=== PATIENT | male | born 1970 | race Hispanic/Latino ===

== ENCOUNTER 2022-12-30 14:01 | Emergency (ER) | payer SELFPAY ==
--- NOTE | ~2022-12-30 | XR_ITS ---
EXAMINATION: XR abdomen/kub 1V INDICATION: Foreign body evaluation TECHNIQUE: Supine views of the abdomen were obtained on 2 radiographs. COMPARISON: None FINDINGS: No radiopaque foreign body is identified. The bowel gas pattern is normal. The visualized l libby bases are clear. There is mild osteoarthritis of the hips. IMPRESSION: 1. No radiopaque foreign body identified. Reviewed, dictated and finalized at location F.
--- NOTE | ~2022-12-30 | XR_ITS ---
XR chest 1V portable DATE: 12/30/2022 14:47 INDICATION: Hypotension, bradycardia. Altered mental state. TECHNIQUE: Portable upright AP chest on 12/30/2022 at 1443 hours COMPARISON: None FINDINGS: Normal heart size. No hilar or mediastinal enlargement. No pulmonary infiltrate or consolid ation, pleural effusion or pulmonary vascular congestion or pneumothorax. IMPRESSION: No active cardiopulmonary disease Reviewed, dictated and finalized at location B.
[2022-12-30 14:03] VITALS: BP 119/74; PULSE 57; RESP 16; O2SAT 100
[2022-12-30 14:10] VITALS: RESP 16
[2022-12-30 14:14] VITALS: TEMP 36.4
[2022-12-30 14:14] LABS: Glucose Point of Care 111 mg/dl (65-105)
--- NOTE | 2022-12-30 14:15 | PC.NURSE ---
OCTAVIA Dias, at [facility] contacted. Larissa reports that contents could breach plastic bag quickly. Tachycardia, hypertension, muscle movements, increased temperature. Larissa made aware of patient condition and she suggests narcan. She shares CT has a low yield of confirming, UDS has low reliability of confirming medication. Patient should be observed for approx 6 hours after becoming asymptomatic.
--- NOTE | 2022-12-30 14:19 | ECG_ITS ---
Measurements Intervals [place] Rate: 58 P: 77 NE: 156 QRS: 83 QRSD: 94 T: 79 QT: 445 QTc: 438 Interpretive Statements SINUS BRADYCARDIA WITH SINUS ARRHYTHMIA BORDERLINE ECG NO PREVIOUS ECG AVAILABLE FOR COMPARISON Electronically Signed On 12-30-2022 15:31:11 CDT by Aroldo Leo D.O.
[2022-12-30] MEDS: SODIUM CHLORIDE 0.9% IV 1,000 ML 999 ML IV CONT (14:24)
--- NOTE | 2022-12-30 14:25 | PC.NURSE ---
Lithograph Press Operator being utilized at bedside. Patient stating he is depressed, reports he had a meeting with a low income resources and didn't want this time happen . Patient denying swallowing a bag of crack. Patient reports he faints when he is stressed. Patient states his only PMH is depression.
--- NOTE | 2022-12-30 14:29 | PC.NURSE ---
Patient denies ingesting any type of drugs. Patient states he started sweating and got nervous because he thought he was going to get arrested. This information was obtained with help of translator interpreter.
[2022-12-30 14:31] VITALS: BP 99/80; PULSE 67; RESP 18; O2SAT 98
--- NOTE | 2022-12-30 14:35 | PC.NURSE ---
Information obtained with help of technician inventory specialist.
[2022-12-30] MEDS: Please add drug allergy info to patient profile. 1 EACH XX (14:48)
[2022-12-30] MEDS: NALOXONE HCL INJ 2 MG/2 ML AMP 1 MG IV PUSH (14:48)
[2022-12-30 14:52] LABS: Basophils Absolute Auto 0.1 K/mm3 (0.0-0.1); Basophils Percent Auto 0.8 % (0.2-1.2); Eosinophils Absolute Auto 0.1 K/mm3 (0-0.3); Eosinophils Percent Auto 1.8 % (0-4.4); Hemoglobin 14.2 g/dL (14.0-18.0); Immature Granulocyte Absolute 0.02 K/mm3 (0.00-0.031); Immature Granulocyte Percent A 0.3 % (0-0.5); Lymphocytes Absolute Auto 1.53 K/mm3 (0.9-3.2); Lymphocytes Percent Auto 25.6 % (18.3-44.2); Mean Corpuscular Hemoglobin 30.8 pg (26-34); Mean Corpuscular Volume 93.3 fl (80-100); Monocytes Absolute Auto 0.3 K/mm3 (0.1-0.6); Monocytes Percent Auto 5.2 % (2.6-8.5); Neutrophils Percent Auto 66.3 % (45.5-73.1); Platelet Count Result 213 k/mm3 (150-375); Red Blood Count 4.61 M/mm3 (4.6-6.20); Red Cell Distribution Width 13.5 % (11.5-14.5)
--- NOTE | 2022-12-30 14:58 | PC.NURSE ---
ISP at bedside. Patient refusing to provide urine specimen. Patient made aware urine specimen was not for ISP, but ordered by EDP for evaluation in ED. Patient still refused. EDP made aware.
[2022-12-30 15:02] LABS: INR 1.1; Partial Thromboplastin Time 26.6 SECONDS (22.3-36.8); Prothrombin Time 13.4 Seconds (11.1-14.7)
[2022-12-30 15:03] LABS: Acetaminophen < 10 ug/mL (10-30); Ethanol < 10 mg/dL (<10); Salicylate < 1.0 mg/dL (2-20)
[2022-12-30 15:04] LABS: Alanine Aminotransferase 20 U/L (6-50); Alkaline Phosphatase 63 U/L (38-126); Anion Gap 4 mmol/L (8-16); Aspartate Amino Transferase 24 U/L (17-59); Bilirubin,Total 0.6 mg/dL (0.2-1.3); Blood Urea Nitrogen 16 mg/dL (9-20); Calcium 8.5 mg/dL (8.4-10.2); Carbon Dioxide 30 mmol/L (22-30); Chloride 104 mmol/L (98-107); Estimated CRCL calculation 88 ml/min; Estimated Glomerular Filt Rate > 60; Glucose 113 mg/dL (65-110); Potassium 4.2 mmol/L (3.4-5.0); Sodium 138 mmol/L (137-145)
[2022-12-30 15:37] VITALS: BP 124/82; PULSE 62; RESP 16; O2SAT 100
[2022-12-30 17:05] VITALS: BP 103/70; PULSE 72; RESP 14; O2SAT 97
--- NOTE | 2022-12-30 17:06 | ED.GENADULT ---
HPI - General Adult General Chief complaint: Overdose Stated complaint: SWALLOWED CRACK Time Seen by Provider: 12/30/22 14:19 History of Present Illness HPI narrative: Patient is a 52-year-old male who presents ER with concern for overdose. Apparently patient was pulled over by [employer] police. He then intentionally ingested some drugs and order to avoid arrest. Patient will not admit to this and states he just became very anxious and depressed because he is undocumented and had been working very hard to start a business and did not want to all fall apart. Patient's girlfriend is also here being searched for drugs. The patient is adamantly denying this he is little bit erratic in his answers and we are requiring a historic interpreter. Denies SI/HI. Related Data Allergies Allergy/AdvReac Type Severity Reaction Status Date / Time No Known Allergies Allergy Verified 12/30/22 14:47 Review of Systems Review of Systems: ROS unobtainable: Yes other (Intoxication) PMFSH Past Medical History Medical History (Updated 12/30/22 @ 19:11 by Kyler Thompson MD) Depression Surgical History Surgical History (Updated 12/30/22 @ 17:08 by Kyler Thompson MD) No history of previous surgery Exam Narrative: GENERAL: Intoxicated-appearing, well-nourished, and in no acute distress. HEAD: Normocephalic, atraumatic. EYES: PERRL and EOMI. ENT: Mucous membranes moist. CHEST: Clear to auscultation. No respiratory distress. HEART: Regular rate and rhythm. Normal peripheral pulses. ABDOMEN: Soft, nontender, nondistended. EXTREMITIES: Normal range of motion. No edema. SKIN: Warm, dry, no rash. NEURO: Alert and oriented x3. PSYCH: Normal mood and affect. Course Course Emergency Course: Patient initially intoxicated but oriented. After receiving Narcan he woke up and was appropriate. After about an hour and half patient was very sleepy again but he was not hypoxic. Blood pressure did seem little bit lower. He was open to receiving some more Narcan. When he received his second dose of Narcan he is much more awake. The police had left and his girlfriend and been discharged. At that time he wished to leave AGAINST MEDICAL ADVICE and did not wish to have any more medical observation. Vital Signs Vital signs: Vital Signs Pulse Rate 57 L 12/30/22 14:03 Respiratory Rate 16 12/30/22 14:03 Blood Pressure 119/74 12/30/22 14:03 Pulse Oximetry 100 12/30/22 14:03 Oxygen Delivery Room Air 12/30/22 14:03 Temperature 97.6 F 12/30/22 14:14 Pulse Rate 72 12/30/22 17:05 Respiratory Rate 14 12/30/22 17:05 Blood Pressure 103/70 12/30/22 17:05 Pulse Oximetry 97 12/30/22 17:05 Oxygen Delivery Room Air 12/30/22 14:03 Medical Decision Making Vital Signs Vital Signs: Vital Signs Pulse Rate 57 L 12/30/22 14:03 Respiratory Rate 16 12/30/22 14:03 Blood Pressure 119/74 12/30/22 14:03 Pulse Oximetry 100 12/30/22 14:03 Oxygen Delivery Room Air 12/30/22 14:03 Temperature 97.6 F 12/30/22 14:14 Pulse Rate 72 12/30/22 17:05 Respiratory Rate 14 12/30/22 17:05 Blood Pressure 103/70 12/30/22 17:05 Pulse Oximetry 97 12/30/22 17:05 Oxygen Delivery Room Air 12/30/22 14:03 Lab Data 12/30/22 14:40 12/30/22 14:40 Labs: Lab Results 12/30/22 12/30/22 12/30/22 Range/Units 14:40 14:40 14:40 WBC 6.0 (4.5-10.0) K/mm3 RBC 4.61 (4.6-6.20) M/mm3 Hgb 14.2 (14.0-18.0) g/dL Hct 43.0 (42.0-52.0) % MCV 93.3 (80-100) fl MCH 30.8 (26-34) pg MCHC 33.0 (32-36) g/dl RDW 13.5 (11.5-14.5) % Plt Count 213 (150-375) k/mm3 MPV 9.0 (7.4-10.4) fl Immature Gran % (Auto) 0.3 (0-0.5) % Neut % (Auto) 66.3 (45.5-73.1) % Lymph % (Auto) 25.6 (18.3-44.2) % Branch % (Auto) 5.2 (2.6-8.5) % Eos % (Auto) 1.8 (0-4.4) % Baso % (Auto) 0.8 (0.2-1.2) % Lymph # (Auto) 1.53 (0.9-3.2) K/mm3
[2022-12-30] MEDS: NALOXONE HCL 0.4 MG/ML VIAL IV PUSH (17:12)
--- NOTE | 2022-12-30 17:26 | PC.NURSE ---
pt requesting to leave, pt had iv removed. pt signed AMA form and was aware of risks to departing the ED. pt agreeable to signing AMA form.
== END 2022-12-30 17:30 | disposition left against medical advice (07) ==
PROVIDERS: Emergency Provider Emergency Medicine
DX: T40.602A Poisoning by unspecified narcotics, intentional self-harm, initial encounter (principal)
CPT/HCPCS: 36415; 71045; 74018; 80053; 80307; 82948; 85025; 85610; 85730; 93005; 96361; 96374; 96376; 99284; J2310; J7030